=== PATIENT | female | born 1945 | race Caucasian/White ===

== ENCOUNTER 2020-03-24 10:20 | Observation (INO) | payer MEDICARE ==
[~2020-03-24] VITALS: Ht 162.6 cm; Wt 53.6 kg
[~2020-03-24 10:20] MED LIST: FENTANYL PF 100 MCG/2ML ONE; LIDOCAINE 1%, 20ML ONE; LIDOCAINE-MPF 2% ,5ML ONE; MIDAZOLAM 1 MG/ML, 2ML ONE
[2020-03-24 10:56] VITALS: BP 163/84
[2020-03-24] MEDS ORDERED: PLEASE ENTER ALLERGIES MC SCH (11:00)
[2020-03-24] MEDS ORDERED: PLEASE ENTER HEIGHT AND WEIGHT MC SCH (11:00)
[2020-03-24 11:12] LABS: BASOPHILS # (AUTO) 0.03 x10^3/uL (0-0.1); BASOPHILS % (AUTO) 1 % (0-1); EOSINOPHILS # (AUTO) 0.07 x10^3/uL (0-0.4); EOSINOPHILS % (AUTO) 1 % (1-7); LYMPHOCYTES # (AUTO) 1.86 x10^3/uL (1-3.4); LYMPHOCYTES % (AUTO) 34 % (22-44); MD NO; MEAN CORPUSCULAR HEMOGLOBIN 28.6 pg (27.0-34.8); MEAN CORPUSCULAR HGB CONC 32.8 g/dL (32.4-35.8); MEAN PLATELET VOLUME 9.4 fL (7.4-10.4); MONOCYTES # (AUTO) 0.39 x10^3/uL (0.2-0.8); MONOCYTES % (AUTO) 7 % (2-9); NEUTROPHILS # (AUTO) 3.06 x10^3/uL (1.8-6.8); NEUTROPHILS % (AUTO) 57 % (42-75); PLATELET COUNT 205 x10^3/uL (130-400); RED BLOOD COUNT 4.81 x10^6/uL (3.82-5.3); RED CELL DISTRIBUTION WIDTH 14.1 % (9.6-15.2)
[2020-03-24] MEDS ORDERED: LATA7.5D OP (11:13)
[2020-03-24] MEDS ORDERED: ALENDRONATE PO (11:13)
[2020-03-24] MEDS ORDERED: ROPI2TAB8 PO (11:13)
[2020-03-24] MEDS ORDERED: PRAV10TA2 PO (11:13)
[2020-03-24] MEDS ORDERED: ASPI81TA45 PO (11:13)
[2020-03-24] MEDS ORDERED: CYAN-10 PO (11:17)
[2020-03-24] MEDS ORDERED: Magnesium PO (11:17)
[2020-03-24] MEDS ORDERED: MULT-658 PO (11:17)
[2020-03-24] MEDS ORDERED: Vitamin E PO (11:17)
[2020-03-24] MEDS ORDERED: CALC-455 PO (11:17)
[2020-03-24] MEDS ORDERED: Vitamin D3 PO (11:17)
[2020-03-24] MEDS ORDERED: OMEG-14 PO (11:17)
[2020-03-24] MEDS ORDERED: GLUC1CAP18 PO (11:17)
[2020-03-24 11:23] LABS: ANION GAP 6 mmol/L (5-15); CALCIUM 9.4 mg/dL (8.5-10.1); CHLORIDE 111 mmol/L (98-107); CREATININE 0.78 mg/dL (0.55-1.02)
[2020-03-24] MEDS ORDERED: MEPERIDINE/PF 25MG/0.5ML IVPush PRN (12:00)
[2020-03-24] MEDS ORDERED: hydrALAzine 20 MG/ML, 1ML IV PRN (12:00)
[2020-03-24] MEDS ORDERED: ONDANSETRON 2MG/ML, 2ML ONE (12:00)
[2020-03-24] MEDS ORDERED: PROMETHAZINE 25 MG/ML, 1ML IVPush PRN (12:00)
[2020-03-24] MEDS ORDERED: ACETAMINOPHEN 325 MG TABLET PO PRN (12:00)
[2020-03-24] MEDS ORDERED: FENTANYL PF 100 MCG/2ML IV PRN (12:00)
[2020-03-24] MEDS ORDERED: PROPOFOL 10 MG/ML, 20ML ONE (12:00)
[2020-03-24] MEDS ORDERED: EPHEDRINE 50 MG/ML, 1ML IVPush PRN (12:00)
[2020-03-24] MEDS ORDERED: HYDROmorphone 1 MG/ML, 1ML INJ IVPush PRN (12:00)
[2020-03-24] MEDS ORDERED: CEFAZOLIN 1,000 MG ONE ×2 (12:00→12:14)
[2020-03-24] MEDS ORDERED: OXYcodone 5 MG/5 ML ORAL.SOL UDC PO PRN (12:00)
[2020-03-24] MEDS ORDERED: SODIUM CHLORIDE 0.9% PF 10ML ONE (12:00)
[2020-03-24] MEDS ORDERED: LABETALOL 5MG/ML, 20ML IV PRN (12:00)
[2020-03-24] MEDS ORDERED: SUCCINYLCHOLINE 20 MG/ML, 10ML ONE (12:00)
[2020-03-24] MEDS ORDERED: ONDANSETRON 2MG/ML, 2ML IVPush PRN (12:00)
[2020-03-24] MEDS ORDERED: DEXAMETHASONE 4 MG/ML, 1ML ONE (12:00)
[2020-03-24] MEDS ORDERED: KETOROLAC 30 MG/1 ML ONE (12:21)
[2020-03-24] MEDS ORDERED: EPHEDRINE 50 MG/ML, 1ML ONE (12:32)
[2020-03-24] MEDS ORDERED: HOLD MEDICATION MC PRN (13:00)
[2020-03-24] MEDS ORDERED: ALENDRONATE PO SCH (13:00)
[2020-03-24] MEDS ORDERED: CEPH-368 PO (14:37)
[2020-03-24] MEDS: ROPINIROLE 1MG TABLET PO SCH ×2 (16:00→20:17)
[2020-03-24] MEDS: OMEGA-3/FISH OIL CAPSULE PO SCH ×2 (16:00→20:17)
[2020-03-24] MEDS: SODIUM CHLORIDE 0.9% 1,000 ML IV SCH ×3 (17:38→20:20)
[2020-03-24 17:57] VITALS: BP 142/87
[2020-03-24 18:42] VITALS: BP 124/81
[2020-03-24] MEDS: CALCIUM/VITAMIN D3 250-125 TABLET PO SCH (20:17)
[2020-03-24] MEDS: CEPHALEXIN 500 MG CAPSULE PO SCH (20:17)
[2020-03-24] MEDS: SODIUM CHLORIDE FLUSH 10ML SYR IVF SCH (20:18)
[2020-03-24] MEDS ORDERED: PRAVASTATIN 20 MG TABLET PO SCH (21:00)
[2020-03-24] MEDS ORDERED: LATANOPROST OPHTH 0.005%, 2.5ML OP SCH (21:00)
[2020-03-24] MEDS ORDERED: TEMPLATE NON-FORMULARY MED. (Gluc Hcl/Csa/Coll Hy/Hyalur Ac** (Glucosamine Chondroitin Cap PO SCH (21:00)
[2020-03-25 01:36] VITALS: BP 122/78
[2020-03-25] MEDS: ROPINIROLE 1MG TABLET PO SCH ×2 (05:30→10:38)
[2020-03-25] MEDS: CEPHALEXIN 500 MG CAPSULE PO SCH (05:30)
[2020-03-25 06:54] VITALS: BP 145/90
[2020-03-25] MEDS: OMEGA-3/FISH OIL CAPSULE PO SCH (08:38)
[2020-03-25] MEDS: CALCIUM/VITAMIN D3 250-125 TABLET PO SCH (08:39)
[2020-03-25] MEDS: SODIUM CHLORIDE FLUSH 10ML SYR IVF SCH (08:42)
[2020-03-25] MEDS: SODIUM CHLORIDE 0.9% 1,000 ML IV SCH (08:43)
[2020-03-25] MEDS ORDERED: METO5TAB57 PO (08:59)
[2020-03-25] MEDS ORDERED: AMOX-291 PO (08:59)
[2020-03-25] MEDS ORDERED: CYANOCOBALAMIN 1,000 MCG TABLET PO SCH (09:00)
[2020-03-25] MEDS ORDERED: VITAMIN E 400 UNITS CAPSULE PO SCH (09:00)
[2020-03-25] MEDS ORDERED: MULTIVITAMIN 1 TABLET PO SCH (09:00)
[2020-03-25] MEDS ORDERED: ASPIRIN 81 MG TABLET EC PO SCH (09:00)
[2020-03-25] MEDS ORDERED: MAGNESIUM OXIDE 400 MG TABLET PO SCH (09:00)
[2020-03-25] MEDS ORDERED: CHOLECALCIFEROL 400 UNITS TABLET PO SCH (09:00)
[2020-03-25] MEDS ORDERED: CEFTRIAXONE PMX 1GM/50ML 50 ML IV ONE (10:00)
== END 2020-03-25 12:10 | disposition home or self-care (01) ==
LOC: CACL 10:20 → 5SO 17:18 → CACL 03-25 02:58 → INTOOBSV 03-25 03:04 → 5SO 03-25 03:04 → DCLOUNGE 03-25 12:01
PROVIDERS: ADMIT Internal Medicine Cardiovascular Disease; ATTEND Internal Medicine Cardiovascular Disease
DX: I06.8 Other rheumatic aortic valve diseases (principal); I10 Essential (primary) hypertension; E78.00 Pure hypercholesterolemia, unspecified; G25.81 Restless legs syndrome; E78.5 Hyperlipidemia, unspecified; M81.0 Age-related osteoporosis without current pathological fracture; Z95.0 Presence of cardiac pacemaker; Z79.899 Other long term (current) drug therapy; Z79.82 Long term (current) use of aspirin
CPT/HCPCS: 33228; 36415; 80048; 85025; 87635; 96365; C1785; G0378; J0330; J0690; J0696; J1100; J1885; J2405; J2704; J3010; J3490; J2250